=== PATIENT | male | born 1985 | race Hispanic/Latino ===

== ENCOUNTER 2021-08-17 10:42 | Emergency (ER) | payer BC ==
[~2021-08-17] VITALS: Ht 185.4 cm; Wt 90.7 kg
[2021-08-17] MEDS ORDERED: ONDANSETRON ODT4 MG PO (10:53)
[2021-08-17] MEDS ORDERED: MUCINEX DM ER1 EAC1 PO (10:54)
== END 2021-08-17 11:12 | disposition home or self-care (01) ==
LOC: ER 11:05
DX: U07.1 COVID-19 (principal); R06.00 Dyspnea, unspecified; R05.9 Cough, unspecified
CPT/HCPCS: 99283